=== PATIENT | male | born 1935 | race Caucasian/White ===

== ENCOUNTER 2025-02-20 11:10 | Inpatient (IN) | payer MEDICARE ==
[2025-02-20 12:13] LABS: VENOUS BASE EXCESS 2.3 mmol/L (-2-2); VENOUS O2 SATURATION 33.3 % (70-80); VENOUS PCO2 50.4 mmHg (38-52); VENOUS PH 7.37 (7.310-7.410)
[2025-02-20 12:33] LABS: ABSOLUTE IMMATURE GRANULOCYTES 0.03 x10^3/uL (0.0-0.031); BASOPHILS # 0.04 x10^3/uL (0.01-0.08); EOSINOPHIL % 2.4 % (0.8-7.0); EOSINOPHILS # 0.17 x10^3/uL (0.04-0.54); HEMATOCRIT 41.4 % (40.1-51.0); HEMOGLOBIN 13.2 g/dL (13.7-17.5); MCHC 31.9 g/dl (32.3-36.5); MEAN CELL VOLUME 101.5 fl (79.0-92.2); MEAN PLT VOLUME 9.9 fl (9.4-12.4); MONOCYTE # 0.32 x10^3/uL (0.30-0.82); MONOCYTE % 4.4 % (5.3-12.2); PLATELET COUNT 197 x10^3/uL (163-337); RDW 14.6 % (12.6-16.6)
[2025-02-20 12:43] LABS: INR 1.08 (0.83-1.09); PROTHROMBIN TIME (PATIENT) 11.8 SEC (9.7-13.0)
[2025-02-20 12:45] LABS: ACTIVATED PTT 31.9 SECONDS (25.2-36.5)
[2025-02-20 12:53] LABS: POTASSIUM 4.2 mmol/L (3.5-5.1)
[2025-02-20 12:54] LABS: LACTIC ACID 2.6 mmol/L (0.4-2.0)
[2025-02-20 12:57] LABS: CALCIUM 8.8 mg/dL (8.5-10.1)
[2025-02-20 12:58] LABS: ALBUMIN 2.9 g/dl (3.4-5.0)
[2025-02-20 13:01] LABS: CREATININE 0.9 mg/dL (0.55-1.3)
[2025-02-20 13:02] LABS: BILIRUBIN,TOTAL 1.2 mg/dL (0.2-1); TOT PROT 6.8 g/dl (6.4-8.2)
[2025-02-20] MEDS: SODIUM CHLORIDE 0.9% 500 ML INFUS.BAG IV ONE (13:20)
[2025-02-20 13:32] LABS: URINE APPEARANCE CLEAR; URINE BILIRUBIN NEGATIVE (NEGATIVE); URINE COLOR YELLOW; URINE GLUCOSE (UA) NEGATIVE (NEGATIVE); URINE KETONE NEGATIVE (NEGATIVE); URINE LEUK ESTERASE NEGATIVE (NEGATIVE); URINE NITRITE NEGATIVE (NEGATIVE); URINE PROTEIN TRACE (NEGATIVE); URINE UROBILINOGEN 0.2 mg/dL (0.2-1.0)
[2025-02-20 14:57] LABS: LACTIC ACID 2.1 mmol/L (0.4-2.0)
[2025-02-20] MEDS ORDERED: ACETAMINOPHEN 325 MG TABLET (FP) PO PRN (16:48)
[2025-02-20] MEDS ORDERED: MIRTAZAPINE 15 MG TABLET (FP) ONE (21:56)
[2025-02-20] MEDS: BUDESONIDE/FORMETEROL FUMARATE 80/4.5 mcg INHALER IH SCH (23:17)
[2025-02-20] MEDS: MIRTAZAPINE 15 MG TABLET (FP) PO SCH (23:17)
[2025-02-21 01:01] VITALS: BMI 16.5
[2025-02-21 09:30] LABS: HEMATOCRIT 37.7 % (40.1-51.0); MCHC 31.8 g/dl (32.3-36.5); MEAN CELL VOLUME 101.1 fl (79.0-92.2); MEAN PLT VOLUME 10.1 fl (9.4-12.4); PLATELET COUNT 197 x10^3/uL (163-337); RDW 14.2 % (12.6-16.6)
[2025-02-21 09:55] LABS: POTASSIUM 4.1 mmol/L (3.5-5.1)
[2025-02-21 09:58] LABS: CALCIUM 8.4 mg/dL (8.5-10.1)
[2025-02-21 10:01] LABS: CREATININE 0.7 mg/dL (0.55-1.3)
[2025-02-21 10:02] LABS: PHOSPHOROUS 2.1 mg/dL (2.5-4.9)
[2025-02-21] MEDS: TAMSULOSIN HCL 0.4 MG CAP PO SCH (10:23)
[2025-02-21] MEDS: NAPH,MB-DB/K PH,MBDB POWDER PACKET PO ONE (14:26)
[2025-02-22] MEDS: QUEtiapine FUMARATE 25 MG TABLET PO ONE (02:14)
[2025-02-22] MEDS: HALOPERIDOL LACTATE 5 MG/ML IM ONE (02:55)
[2025-02-22] MEDS: HALOPERIDOL LACTATE 5 MG/ML IVPUSH ONE (06:29)
[2025-02-22 07:46] LABS: HEMATOCRIT 38.2 % (40.1-51.0); HEMOGLOBIN 12.3 g/dL (13.7-17.5); MCHC 32.2 g/dl (32.3-36.5); MEAN CELL VOLUME 97.9 fl (79.0-92.2); MEAN PLT VOLUME 9.7 fl (9.4-12.4); PLATELET COUNT 227 x10^3/uL (163-337); RDW 13.8 % (12.6-16.6)
[2025-02-22 08:20] LABS: POTASSIUM 3.9 mmol/L (3.5-5.1)
[2025-02-22 08:25] LABS: CALCIUM 9.2 mg/dL (8.5-10.1)
[2025-02-22 08:26] LABS: BLOOD UREA NITROGEN 17.5 mg/dL (7-18); MAGNESIUM 2.1 mg/dL (1.8-2.4)
[2025-02-22 08:29] LABS: CREATININE 0.8 mg/dL (0.55-1.3); PHOSPHOROUS 2.4 mg/dL (2.5-4.9)
[2025-02-22] MEDS: NAPH,MB-DB/K PH,MBDB POWDER PACKET PO ONE (08:50)
[2025-02-22 10:45] VITALS: BP 134/62; PULSE 116; RESP 20; TEMP 97.6
[2025-02-22] MEDS ORDERED: ALBUTEROL SO4 2.5/IPRATROPIUM 0.5 INH SOL 3 ML VIAL.NEB. NEB PRN (13:35)
[2025-02-22] MEDS: ALBUTEROL SO4 0.083% IH SOL 2.5 MG/3 ML VIAL.NEB. NEB PRN (14:04)
[2025-02-22] MEDS: ALBUTEROL SO4 2.5/IPRATROPIUM 0.5 INH SOL 3 ML VIAL.NEB. NEB ONE (15:00)
[2025-02-22] MEDS ORDERED: ALBUTEROL SO4 0.083% IH SOL 2.5 MG/3 ML VIAL.NEB. NEB PRN (15:12)
[2025-02-22] MEDS ORDERED: ACETAMINOPHEN 325 MG TABLET (FP) PO PRN (15:12)
[2025-02-22] MEDS: ALBUTEROL SULFATE 0.021% (0.63 MG/3 ML) VIAL.NEB NEB ONE (18:48)
[2025-02-22] MEDS: BUDESONIDE 0.25 MG/2ML INH SUSP VIAL NEB ONE (18:48)
[2025-02-22] MEDS ORDERED: MIRTAZAPINE 15 MG TABLET (FP) PO SCH (22:00)
[2025-02-22] MEDS ORDERED: BUDESONIDE/FORMETEROL FUMARATE 80/4.5 mcg INHALER IH SCH (22:00)
[2025-02-23] MEDS ORDERED: TAMSULOSIN HCL 0.4 MG CAP PO SCH (08:30)
== END 2025-02-22 18:50 | disposition home health service (06) | DRG 552 ==
LOC: JER 11:10 → JERBED 15:53 → OBSVTOIN 16:48 → J4S 23:35 → J6S 02-22 12:57
PROVIDERS: ADMIT Internal Medicine; ATTEND Internal Medicine
DX: S32.049A Unspecified fracture of fourth lumbar vertebra, initial encounter for closed fracture (principal); E44.0 Moderate protein-calorie malnutrition; Z68.1 Body mass index [BMI] 19.9 or less, adult; R64 Cachexia; J44.9 Chronic obstructive pulmonary disease, unspecified; L89.151 Pressure ulcer of sacral region, stage 1; W19.XXXA Unspecified fall, initial encounter; Y93.89 Activity, other specified; Y92.009 Unspecified place in unspecified non-institutional (private) residence as the place of occurrence of the external cause; Y99.8 Other external cause status; N40.0 Benign prostatic hyperplasia without lower urinary tract symptoms; R62.7 Adult failure to thrive; F41.9 Anxiety disorder, unspecified; F32.A Depression, unspecified
CPT/HCPCS: 0241U-QW; 36415; 70450-TC; 71045-TC-FY; 72125-TC; 72131-TC; 72170-TC-FY; 80048; 80053; 81003; 82803; 83605; 83735; 84100; 84484; 85025; 85027; 85610; 85730; 86850; 86900; 86901; 87040; 87086; 93005; 93010; 94640; 97116-GP; 97161-GP; 99285-25; G0378